=== PATIENT | male | born 1950 ===

== ENCOUNTER → 2019-03-11 | Day surgery (SDC) | payer OTHER ==
[~2019-03-11] VITALS: Ht 177.8 cm; Wt 88.5 kg
[~2019-03-11] MED LIST: CHANTIX1 M1 PO; PREVACID30 M3 PO
[2019-03-11 07:30] VITALS: BP 134/80
[2019-03-11 07:46] VITALS: BP 116/76
[2019-03-11 08:01] VITALS: BP 119/74
[2019-03-11 08:13] VITALS: BP 114/55
--- NOTE | 2019-03-11 08:47 | NUR ---
IV FLUIDS DISCONTINUED AT 0815.
== END | disposition home or self-care (01) ==
LOC: SDC 03-06 08:00
DX: Z12.11 Encounter for screening for malignant neoplasm of colon (principal); K29.50 Unspecified chronic gastritis without bleeding; D12.4 Benign neoplasm of descending colon; K44.9 Diaphragmatic hernia without obstruction or gangrene; F41.9 Anxiety disorder, unspecified; F32.9 Major depressive disorder, single episode, unspecified; K21.9 Gastro-esophageal reflux disease without esophagitis; Z98.890 Other specified postprocedural states; Z87.891 Personal history of nicotine dependence; Z79.899 Other long term (current) drug therapy